=== PATIENT | male | born 1950 | race Caucasian/White ===

== ENCOUNTER 2018-01-30 17:26 | Inpatient (IN) | payer OTHER, MEDICARE ==
--- NOTE | 2018-01-30 17:48 | PDOC ---
Rapid Medical Evaluation Chief Complaint: Wound Time Seen by Provider: 01/30/18 17:39 Medical Evaluation: 01/30/18 17:45 Subject: I have performed a brief in-person evaluation of this patient. The patient presents with a chief complaint of: sent from Dr Hassan office for eval of fevers last PM 103.2/ chills/ and dizziness Pertinent physical exam findings: well, pale. Lungs clear , abd soft.but morbidly obese I have ordered the following: Influenza, CBC, CMP, CXR- has labs from previous draw today. The patient will proceed to the ED for further evaluation. PLEASE CALL DR HASSAN cell: [phone] for updates 01/30/18 17:53 Discharge Disposition - Referrals Referrals: Jordan Alonso MD [Primary Care Provider] - - Patient Instructions - Post Discharge Activity
[2018-01-30 18:17] LABS: EOS % 0.2 % (0-4.5); HEMOGLOBIN 13.9 GM/dL (11.7-16.9); MCH 33.1 pg (25.7-33.7); MCHC 34.7 g/dl (32.0-35.9); MEAN CELL VOLUME 95.3 fl (80-96); MEAN PLT VOLUME 8.8 fl (7.5-11.1); MONO % 8.3 % (3.8-10.2); NEUT % 74.5 % (42.8-82.8); PLATELET COUNT 182 K/MM3 (134-434); RDW 13.1 % (11.9-15.9); WHITE BLOOD COUNT 16.7 K/mm3 (4.0-10.0)
[2018-01-30 19:02] LABS: ALBUMIN 3.8 g/dl (3.4-5.0); ANION GAP 10 MMOL/L (8-16); BLOOD UREA NITROGEN 19 mg/dL (7-18); CALCIUM 8.6 mg/dL (8.5-10.1); CHLORIDE 101 mmol/L (98-107); CO2 26 mmol/L (21-32); GLUCOSE,RANDOM 117 mg/dL (74-106); POTASSIUM 3.5 mmol/L (3.5-5.1); SODIUM 137 mmol/L (136-145)
[2018-01-30 19:06] LABS: ALK PHOS 39 U/L (45-117); BILIRUBIN,TOTAL 1.4 mg/dL (0.2-1.0); SGOT/AST 24 U/L (15-37); SGPT/ALT 24 U/L (12-78); TOT PROT 6.9 g/dl (6.4-8.2)
--- NOTE | 2018-01-30 19:14 | PDOC ---
History of Present Illness - General Chief Complaint: Wound Stated Complaint: INFECTED IN THE BLOOD Time Seen by Provider: 01/30/18 17:39 - History of Present Illness Initial Comments: The patient is a 67M with a history of T2DM (metformin), HTN, CHF, and a-fib ( coumadin) who presents with 1d of RUQ abdominal pain with associated emesis x1 yesterday. The patient endorses nausea today but denies emesis. Patient endorses fever at home to 103, only took a cold shower to help alleviate fever. He also denies SZYMANSKI, changes in vision, chest pain, SOB, diarrhea, or changes in urination. The patient was seen in Dr. Alonso's clinic where he was found to have a leukocytosis to 18.8. Per Dr. Alonso, the patient was also experiencing orthostatic dizziness at home over the last day as well. The patient denies history of intra-abdominal surgeries. 01/30/18 20:16 01/30/18 20:19 Past History - Past Medical History Allergies/Adverse Reactions: Allergies Allergy/AdvReac Type Severity Reaction Status Date / Time No Known Allergies Allergy Verified 01/30/18 17:40 Home Medications: Ambulatory Orders Glimepiride [Amaryl -] 1 mg PO DAILY 01/30/18 Lisinopril mg PO DAILY 01/30/18 Cardiac Disorders: Yes (a fib) COPD: No Diabetes: Yes HTN: Yes - Suicide/Smoking/Psychosocial Hx Smoking History: Never smoked Review of Systems - Review of Systems Able to Perform ROS?: Yes Comments:: GENERAL/CONSTITUTIONAL: +fevers at home to 103; No weakness HEAD, EYES, EARS, NOSE AND THROAT: No change in vision. No ear pain or discharge. No sore throat CARDIOVASCULAR: No chest pain or shortness of breath RESPIRATORY: No cough, wheezing, or hemoptysis GASTROINTESTINAL: +nausea; no vomiting today; No diarrhea or constipation GENITOURINARY: No dysuria, frequency, or change in urination MUSCULOSKELETAL: No joint or muscle swelling or pain. No neck or back pain SKIN: No rash NEUROLOGIC: No headache, loss of consciousness, or change in strength/sensation ENDOCRINE: No increased thirst. No abnormal weight change HEMATOLOGIC/LYMPHATIC: No anemia, +coumadin ALLERGIC/IMMUNOLOGIC: No hives or skin allergy 01/30/18 20:18 01/30/18 20:19 01/30/18 20:20 *Physical Exam - Vital Signs Last Vital Signs Temp Pulse Resp BP Pulse Ox 99.6 F 99 H 18 134/75 98 01/30/18 17:41 01/30/18 17:41 01/30/18 17:41 01/30/18 17:41 01/30/18 17:41 - Physical Exam Comments: GENERAL: Awake, alert, and fully oriented, in no acute distress HEAD: No signs of trauma, normocephalic, atraumatic EYES: PERRLA, EOMI, sclera anicteric, conjunctiva clear ENT: Hearing grossly normal, nares patent, oropharynx clear without exudates. Moist mucosa NECK: Normal ROM, supple, no lymphadenopathy LUNGS: No distress, speaks full sentences, clear to auscultation bilaterally HEART: irregularly irregular, normal S1 and S2, no murmurs appreciated, peripheral pulses normal and equal bilaterally ABDOMEN: Soft, protuberant, nontender, normoactive bowel sounds. No guarding, no rebound EXTREMITIES : BLE venous skin changes; BLE 2+ edema to mid-rodríguez; Normal inspection, Normal range of motion NEUROLOGICAL: Cranial nerves II through XII grossly intact. Normal speech, normal gait, no focal sensorimotor deficits SKIN: Warm, Dry, BLE venous skin changes 01/30/18 20:20 ED Treatment Course - LABORATORY CBC & Chemistry Diagram: 01/30/18 18:02 01/30/18 18:02 - ADDITIONAL ORDERS Additional order review: Laboratory Results 01/30/18 18:02 Lipase 105 01/30/18 18:02 RBC 4.20 MCV 95.3 MCHC 34.7 RDW 13.1 MPV 8.8 Neutrophils % 74.5 Lymphocytes % 16.0 Monocytes % 8.3 Eosinophils % 0.2 Basophils % 1.0 Medical Decision Making - Medical Decision Making The patient is a 67M with a history of T2DM and a-fib (coumadin) who presents with 1d of abominal pain, Vx1, and orthostatic lightheadedness Ddx: bacteremia, cellulitis, cholecystitis, gastritis, pancreatitis ED Course CMP, CBC, Lipase, UA RUQ US 1L NS CT A&P w/ IV contrast 01/30/18 20:46 Leukocytosis to 16.7 Will draw blood cx and lactate Will start Vanc and Zosyn Plan for admission for treatment of cellulitis vs bacteremia CT w/o evidence of cholecystitis or other intra-abdominal sources of infection. However, 1.7cm lesion noted for which patient will need f/u as there is no prior study. Dispo admit for IV abx 01/30/18 20:48 *DC/Admit/Observation/Transfer Diagnosis at time of Disposition: Cellulitis Qualifiers: Site of cellulitis: extremity Site of cellulitis of extremity: lower extremity Laterality: left Qualified Code(s): L03.116 - Cellulitis of left lower limb - Discharge Dispostion Condition at time of disposition: Stable Decision to Admit order: Yes - Referrals - Patient Instructions - Post Discharge Activity
[2018-01-30] MEDS ORDERED: SODIUM CHLORIDE 0.9% 500 ML INFUS.BAG IV ONE (20:09)
--- NOTE | 2018-01-30 20:32 | PDOC ---
Attending Attestation - Physicial Exam PE: 01/30/18 20:33 GENERAL: Awake, alert, and fully oriented, in no acute distress HEAD: No signs of trauma EYES: PERRLA, EOMI, sclera anicteric, conjunctiva clear ENT: Auricles normal inspection, hearing grossly normal, nares patent, oropharynx clear without exudates. Moist mucosa NECK: Normal ROM, supple, no lymphadenopathy, JVD, or masses. No bruits. LUNGS: Breath sounds equal, clear to auscultation bilaterally. No wheezes, and no crackles HEART: Regular rate and rhythm, normal S1 and S2, no murmurs, rubs or gallops ABDOMEN: (+) Protuberant with pannus. Soft, nontender, normoactive bowel sounds. No guarding, no rebound. No masses. EXTREMITIES: Moving all extremities purposefully. No clubbing or cyanosis. No cords or tenderness. (+) Chronic pedal edema. (+) Mild erythema on the rodríguez of the left leg. (+) chronic 4cm laceration on the right knee. NEUROLOGICAL: No gross focal deficits. SKIN: Warm, Dry, normal turgor, no rashes or lesions noted. <Tereza Celeste - Last Filed: 01/30/18 20:33> - Resident Resident Name: Jorge Swift - ED Attending Attestation I have performed the following: I have examined & evaluated the patient, The case was reviewed & discussed with the resident, I agree w/resident's findings & plan, Exceptions are as noted - HPI HPI: 01/30/18 20:32 this 67 yo obese male sent in for fever,abd pain - Medical Decision Making 01/31/18 01:34 IMP cellultis admitted for IV antibiotics <Silvia Stallworth - Last Filed: 01/31/18 01:42>
[2018-01-30 22:16] LABS: URINE APPEARANCE CLEAR; URINE BILIRUBIN NEGATIVE (<2.0 mg/dL); URINE COLOR YELLOW; URINE GLUCOSE (UA) NEGATIVE (NEGATIVE); URINE KETONE NEGATIVE (NEGATIVE); URINE LEUK ESTERASE TRACE (NEGATIVE); URINE NITRITE NEGATIVE (NEGATIVE); URINE PROTEIN NEGATIVE (NEGATIVE); URINE UROBILINOGEN NEGATIVE mg/dL (0.2-1.0)
[2018-01-31] MEDS ORDERED: PIPERACILLIN/TAZOB 4.5 GM 4.5 GM in DEXTROSE 5%-WATER 100 ML IVPB ONE (00:02)
[2018-01-31] MEDS ORDERED: VANCOMYCIN 1,500 MG in DEXTROSE 5%-WATER - 500 ML IVPB ONE (00:02)
[2018-01-31] MEDS ORDERED: PIPERACILLIN/TAZOB 4.5 GM 4.5 GM/100 ML BAG IVPB ONE (00:11)
[2018-01-31 07:37] LABS: HEMATOCRIT 40.7 % (35.4-49); HEMOGLOBIN 13.8 GM/dL (11.7-16.9); MCH 32.4 pg (25.7-33.7); MCHC 33.8 g/dl (32.0-35.9); MEAN CELL VOLUME 95.7 fl (80-96); MEAN PLT VOLUME 8.8 fl (7.5-11.1); PLATELET COUNT 167 K/MM3 (134-434); RBC 4.25 M/mm3 (4.00-5.60); RDW 13.1 % (11.9-15.9); WHITE BLOOD COUNT 13.7 K/mm3 (4.0-10.0)
[2018-01-31 07:40] LABS: INR 1.82 (0.83-1.09); PROTHROMBIN TIME (PATIENT) 20.6 SEC (9.7-13.0)
[2018-01-31 07:52] LABS: ANION GAP 10 MMOL/L (8-16); BLOOD UREA NITROGEN 16 mg/dL (7-18); CALCIUM 8.5 mg/dL (8.5-10.1); CHLORIDE 103 mmol/L (98-107); CO2 24 mmol/L (21-32); GLUCOSE,RANDOM 153 mg/dL (74-106); POTASSIUM 3.5 mmol/L (3.5-5.1); SODIUM 137 mmol/L (136-145)
[2018-01-31 07:55] LABS: CREATININE 0.9 mg/dL (0.7-1.3)
[2018-01-31] MEDS ORDERED: HEPARIN NA (PORCINE) 5,000 UNITS/ML 1ML VIAL SQ SCH (10:00)
[2018-01-31] MEDS ORDERED: CEFTRIAXONE 1 GM in DEXTROSE 5%-WATER - 50 ML IVPB ONE (10:00)
[2018-01-31] MEDS ORDERED: CEFTRIAXONE 1 GM/50 ML BAG ONE (10:15)
[2018-01-31] MEDS ORDERED: POLYETHYLENE GLYCOL 3350 119 GM BTL PO ONE (10:17)
[2018-01-31] MEDS: LISINOPRIL 5 MG TABLET (FP) PO SCH (10:17)
--- NOTE | 2018-01-31 15:38 | PN ---
Progress Note (short form) - Note Progress Note: Id consult dictated imp/reccd 67 year old obese man pmh NIDDM admitted today with history of fever on Tuesday night with vomiting, took a cold shower nored left leg pain left calf and inner thigh in ED noted to have leukocytosis ultrasound and ct scan no biliary disease s/p fall on with right knee abrasion received vanco/zosyn and ceftriaxone in ED fever/vomiting prabable cellulitis LLE continue ceftriaxone duplex leg f/u cultures Problem List - Problems (1) Fever Code(s): R50.9 - FEVER, UNSPECIFIED (2) Leukocytosis Code(s): D72.829 - ELEVATED WHITE BLOOD CELL COUNT, UNSPECIFIED (3) Cellulitis Code(s): L03.90 - CELLULITIS, UNSPECIFIED Qualifiers: Site of cellulitis: extremity Site of cellulitis of extremity: lower extremity Laterality: left Qualified Code(s): L03.116 - Cellulitis of left lower limb
--- NOTE | 2018-01-31 16:21 | CONS ---
INFECTIOUS DISEASE CONSULTATION DATE OF CONSULTATION: DATE OF DICTATION: 01/31/2018 REQUESTING PHYSICIAN: Jordan Alonso MD This is a 67-year-old man who on Tuesday night developed acute onset of fever with vomiting. He took a cold shower to alleviate his fever. He denies to me any abdominal pain. He has had a poor appetite. He noticed as well that he had left inner thigh and left lower leg pain at the same time. He had fever as high as 103. He had labs drawn and was noted to have a white count of 18,000 and advised admission to the hospital. Since then, he has had no further vomiting. He notes his leg pain is present but improved. ALLERGIES: He denies any drug allergies. PAST MEDICAL HISTORY: Notable for hqy-jgeqoxj-hahfuzwlz diabetes, hypertension, heart failure, atrial fibrillation, and obesity. MEDICATIONS AT HOME: Include glimepiride and lisinopril. SOCIAL HISTORY: He is originally from [facility]. There is no history of any recent travel. REVIEW OF SYSTEMS: He denies chest pain. He denies cough, shortness of breath. PHYSICAL EXAMINATION: General: He is an obese man in no acute distress. Vital Signs: His T-max is 100. Current temperature is 98.9. Pulse of 91; blood pressure 152/91. Respiratory rate is 18. He is saturating 98%. HEENT: Normocephalic. His eyes are anicteric. Neck: Supple. Lungs: Clear to auscultation. Heart: Regular rate and rhythm. Abdomen: Soft, nontender. Extremities: He has some mild warmth, erythema of the lateral aspect of the left lower extremity. He has an abrasion on his right knee. No pain in his right inner thigh. LABORATORY DATA: His labs are notable for an admission white count of 18,000. Today is 13.7. Hemoglobin 13.8. Platelets are 167. BUN is 16 and creatinine 0.9. Urinalysis is negative except for 1+ blood. His antigen is negative. Urine and blood cultures are pending. CAT scan findings are negative for biliary disease. In summary, this is a 67-year-old man with [id number] diabetes and hypertension, admitted with fever and leukocytosis, probable cellulitis, left lower extremity. Would continue ceftriaxone. Follow up cultures. Would get a duplex of his leg as well given the fact he complains of pain. Further recommendations to follow. Mary Alice PURDY/[id number]
--- NOTE | 2018-01-31 16:23 | HP ---
Admitting History and Physical - Primary Care Physician PCP: Handy Arboleda (cover for Dr Alonso) - Admission Chief Complaint: pain abd History of Present Illness: Overweight 67M with a history of T2DM (metformin), HTN, and a-fib (coumadin) who developed Rt sided abdominal pain with associated emesis x1 that began 2 days ago, and persisted into Tuesday. The patient cont'd to have nausea at time of arrival. Patient reported a fever home to 103, only took a cold shower to help alleviate it. He also denies SZYMANSKI, changes in vision, chest pain, SOB, diarrhea, or changes in urination, rash. The patient was seen in Dr. Alonso's office for this complaint. he sent him for bloodwork and was found to have a leukocytosis to 18.8. The patient was then advised to go to ED History Source: Patient, Medical Record Limitations to Obtaining History: Language Barrier - Past Medical History Cardiovascular: Yes: AFIB, HTN Hepatobiliary: Yes: Other (fatty liver) Musculoskeletal: Yes: Other Endocrine: Yes: Diabetes Mellitus Dermatology: Yes: Other (abrasion on skin of the RLE near ant knee) - Smoking History Smoking history: Never smoked Have you smoked in the past 12 months: No - Alcohol/Substance Use Hx Alcohol Use: No Number of Drinks Daily: 1 History of Substance Use: reports: None - Social History ADL: Independent History of Recent Travel: Yes (spends 6 months in [place] and 6 months in [place]) Other Social History: works in construction Home Medications - Allergies Allergies/Adverse Reactions: Allergies Allergy/AdvReac Type Severity Reaction Status Date / Time No Known Allergies Allergy Verified 01/30/18 17:40 - Home Medications Home Medications: Ambulatory Orders Glimepiride [Amaryl -] 1 mg PO DAILY 01/30/18 Lisinopril mg PO DAILY 01/30/18 Family Disease History - Family Disease History Family History: Unremarkable Review of Systems - Review of Systems Constitutional: reports: Chills Eyes: reports: No Symptoms HENT: reports: No Symptoms Neck: reports: No Symptoms Cardiovascular: reports: No Symptoms Respiratory: reports: No Symptoms Gastrointestinal: reports: Abdominal Pain Genitourinary: reports: No Symptoms Musculoskeletal: reports: No Symptoms Integumentary: reports: Wound (RLE) Neurological: reports: No Symptoms Endocrine: reports: No Symptoms Hematology/Lymphatic: reports: No Symptoms Psychiatric: reports: No Symptoms Physical Examination Vital Signs: Vital Signs Temperature 98.5 F 01/31/18 16:08 Pulse Rate 81 01/31/18 16:08 Respiratory Rate 16 01/31/18 16:08 Blood Pressure 134/78 01/31/18 16:08 O2 Sat by Pulse Oximetry (%) 98 01/31/18 12:15 Constitutional: Yes: Well Nourished Eyes: Yes: Conjunctiva Clear HENT: Yes: Atraumatic Neck: Yes: Supple Cardiovascular: Yes: Regular Rate and Rhythm Respiratory: Yes: WNL Gastrointestinal: Yes: Soft, Abdomen, Obese ...Rectal Exam: Yes: Deferred Musculoskeletal: Yes: WNL Extremities: Yes: WNL Edema: Yes Edema: LLE: 1+, RLE: 1+ Peripheral Pulses: Left Doralis Pedis: 1+, Right Dorsalis Pedis: 1+ Integumentary: Yes: Other (abrasion) Wound/Incision: Yes: Excoriated (skin over Rt lat knee) Neurological: Yes: WNL ...Motor Strength: WNL Psychiatric: Yes: WNL Labs: CBC, BMP 01/31/18 07:08 01/31/18 07:08 Laboratory Tests 01/30/18 01/30/18 01/30/18 18:02 18:02 18:02 WBC 16.7 H RBC 4.20 Hgb 13.9 Hct 40.0 MCV 95.3 MCH 33.1 MCHC 34.7 RDW 13.1 Plt Count 182 MPV 8.8 Absolute Neuts (auto) 12.4 H Neutrophils % 74.5 Lymphocytes % 16.0 Monocytes % 8.3 Eosinophils % 0.2 Basophils % 1.0 Nucleated RBC % 0 PT with INR INR Sodium 137 Potassium 3.5 Chloride 101 Carbon Dioxide 26 Anion Gap 10 BUN 19 H Creatinine 1.0 Creat Clearance w eGFR > 60 POC Glucometer Random Glucose 117 H Hemoglobin A1c % Lactic Acid Calcium 8.6 Total Bilirubin 1.4 H AST 24 ALT 24 Alkaline Phosphatase 39 L Total Protein 6.9 Albumin 3.8 Lipase 105 Urine Color Urine Appearance Urine pH Ur Specific [place] Urine Protein Urine Glucose (UA) Urine Ketones Urine Blood Urine Nitrite Urine Bilirubin Urine Urobilinogen Ur Leukocyte Esterase Urine WBC (Auto) Urine RBC (Auto) 01/30/18 01/30/18 01/31/18 21:50 23:38 07:08 WBC 13.7 H RBC 4.25 Hgb 13.8 Hct 40.7 MCV 95.7 MCH 32.4 MCHC 33.8 RDW 13.1 Plt Count 167 MPV 8.8 Absolute Neuts (auto) Neutrophils % Lymphocytes % Monocytes % Eosinophils % Basophils % Nucleated RBC % PT with INR INR Sodium Potassium Chloride Carbon Dioxide Anion Gap BUN Creatinine Creat Clearance w eGFR POC Glucometer Random Glucose Hemoglobin A1c % Lactic Acid 1.0 Calcium Total Bilirubin AST ALT Alkaline Phosphatase Total Protein Albumin Lipase Urine Color Yellow Urine Appearance Clear Urine pH 6.0 Ur Specific [place] 1.011 Urine Protein Negative Urine Glucose (UA) Negative Urine Ketones Negative Urine Blood 1+ H Urine Nitrite Negative Urine Bilirubin Negative Urine Urobilinogen Negative Ur Leukocyte Esterase Trace Urine WBC (Auto) 2 Urine RBC (Auto) None 01/31/18 01/31/18 01/31/18 07:08 07:08 07:08 WBC RBC Hgb Hct MCV MCH MCHC RDW Plt Count MPV Absolute Neuts (auto) Neutrophils % Lymphocytes % Monocytes % Eosinophils % Basophils % Nucleated RBC % PT with INR 20.60 H INR 1.82 H Sodium 137 Potassium 3.5 Chloride 103 Carbon Dioxide 24 Anion Gap 10 BUN 16 Creatinine 0.9 Creat Clearance w eGFR > 60 POC Glucometer Random Glucose 153 H D Hemoglobin A1c % 6.3 H Lactic Acid Calcium 8.5 Total Bilirubin AST ALT Alkaline Phosphatase Total Protein Albumin Lipase Urine Color Urine Appearance Urine pH Ur Specific [place] Urine Protein Urine Glucose (UA) Urine Ketones Urine Blood Urine Nitrite Urine Bilirubin Urine Urobilinogen Ur Leukocyte Esterase Urine WBC (Auto) Urine RBC (Auto) 01/31/18 08:29 WBC RBC Hgb Hct MCV MCH MCHC RDW Plt Count MPV Absolute Neuts (auto) Neutrophils % Lymphocytes % Monocytes % Eosinophils % Basophils % Nucleated RBC % PT with INR INR Sodium Potassium Chloride Carbon Dioxide Anion Gap BUN Creatinine Creat Clearance w eGFR POC Glucometer [phone] Random Glucose Hemoglobin A1c % Lactic Acid Calcium Total Bilirubin AST ALT Alkaline Phosphatase Total Protein Albumin Lipase Urine Color Urine Appearance Urine pH Ur Specific [place] Urine Protein Urine Glucose (UA) Urine Ketones Urine Blood Urine Nitrite Urine Bilirubin Urine Urobilinogen Ur Leukocyte Esterase Urine WBC (Auto) Urine RBC (Auto) Urine Test Results Urine Color Yellow 01/30/18 21:50 Urine Appearance Clear 01/30/18 21:50 Urine pH 6.0 (5.0-8.0) 01/30/18 21:50 Ur Specific [place] 1.011 (1.001-1.035) 01/30/18 21:50 Urine Protein Negative (NEGATIVE) 01/30/18 21:50 Urine Glucose (UA) Negative (NEGATIVE) 01/30/18 21:50 Urine Ketones Negative (NEGATIVE) 01/30/18 21:50 Urine Blood 1+ (NEGATIVE) H 01/30/18 21:50 Urine Nitrite Negative (NEGATIVE) 01/30/18 21:50 Urine Bilirubin Negative (<2.0 mg/dL) 01/30/18 21:50 Ur Leukocyte Esterase Trace (NEGATIVE) 01/30/18 21:50 Imaging - Results Chest X-ray: Report Reviewed Cat Scan: Report Reviewed Ultrasound: Report Reviewed Problem List - Problems (1) Leukocytosis Assessment/Plan: in connection with fever/chills, and abd pain/n-v; which seems to have abated: PLAN: Iv Abs; see ID note Code(s): D72.829 - ELEVATED WHITE BLOOD CELL COUNT, UNSPECIFIED Qualifiers: Leukocytosis type: unspecified Qualified Code(s): D72.829 - Elevated white blood cell count, unspecified (2) Edema extremities Assessment/Plan: with some medial Lt thigh discomfort; edema is bilateral. PLAN: duplex scan Code(s): R60.0 - LOCALIZED EDEMA (3) Diabetes Assessment/Plan: hold Amaryl; check BGMs while on liquid diet Code(s): E11.9 - TYPE 2 DIABETES MELLITUS WITHOUT COMPLICATIONS Qualifiers: Diabetes mellitus type: type 2 Diabetes mellitus complication status: with skin complications Diabetes mellitus complication detail: with other skin complication (4) Fatty infiltration of liver Assessment/Plan: shown on CT & US of abd; LFTs are WNL, no signs of gross hepatic failure Code(s): K76.0 - FATTY (CHANGE OF) LIVER, NOT ELSEWHERE CLASSIFIED (5) Pain, abdominal Assessment/Plan: resolved at this time; no evidence of gallstones; kidney stones; divertic Dz Code(s): R10.9 - UNSPECIFIED ABDOMINAL PAIN Qualifiers: Abdominal location: unspecified location Qualified Code(s): R10.9 - Unspecified abdominal pain (6) Obesity Assessment/Plan: no inpatient plan as this does not seem to play a role in his acute process Code(s): E66.9 - OBESITY, UNSPECIFIED Qualifiers: Obesity type: unspecified obesity type Body mass index: BMI 60.0-69.9 (7) Atrial fibrillation Assessment/Plan: controlled; on a/c Code(s): I48.91 - UNSPECIFIED ATRIAL FIBRILLATION Qualifiers: Atrial fibrillation type: chronic Qualified Code(s): I48.2 - Chronic atrial fibrillation (8) Abrasion hip/leg Assessment/Plan: superfiicial; topical care Qualifiers: Encounter type: initial encounter Assessment/Plan obese 67 YO diabetic M who developed sudden abd discomfort in connection with leukocytosis ~~~~~~~~~~~~~~~~~~~~~~~~~~~~~~~ Dr Arboleda
[2018-01-31] MEDS ORDERED: WARFARIN NA 2 MG TABLET (UD) PO SCH (18:00)
[2018-02-01 07:10] LABS: HEMATOCRIT 38.9 % (35.4-49); HEMOGLOBIN 13.3 GM/dL (11.7-16.9); MCH 32.8 pg (25.7-33.7); MCHC 34.2 g/dl (32.0-35.9); MEAN CELL VOLUME 95.9 fl (80-96); PLATELET COUNT 178 K/MM3 (134-434); RBC 4.06 M/mm3 (4.00-5.60); RDW 13.2 % (11.9-15.9); WHITE BLOOD COUNT 9.4 K/mm3 (4.0-10.0)
[2018-02-01 07:17] LABS: INR 1.67 (0.83-1.09); PROTHROMBIN TIME (PATIENT) 18.9 SEC (9.7-13.0)
[2018-02-01 08:30] LABS: ANION GAP 6 MMOL/L (8-16); CALCIUM 8.5 mg/dL (8.5-10.1); CHLORIDE 104 mmol/L (98-107); CO2 28 mmol/L (21-32); GLUCOSE,RANDOM 146 mg/dL (74-106); POTASSIUM 3.9 mmol/L (3.5-5.1); SODIUM 138 mmol/L (136-145)
[2018-02-01 08:33] LABS: BLOOD UREA NITROGEN 17 mg/dL (7-18)
[2018-02-01] MEDS ORDERED: DEXTROSE 5%-WATER 100 ML IVPB ONE (09:18)
[2018-02-01] MEDS: CEFTRIAXONE 2 GM in DEXTROSE 5%-WATER 100 ML IVPB SCH (09:21)
[2018-02-01] MEDS: LISINOPRIL 5 MG TABLET (FP) PO SCH (09:22)
--- NOTE | 2018-02-01 12:59 | PN ---
Progress Note (short form) - Note Progress Note: feels improved still with LLE pain Vital Signs Period Temp Pulse Resp BP Sys/Campos Pulse Ox Last 24 Hr 98.1 F-98.5 F 65-90 16-20 126-148/56-94 98-98 cor-rrr lungs clear abd firm, protuberant ext +warmth +tenderness LLE CBC, BMP 02/01/18 06:30 02/01/18 06:30 Microbiology 01/31/18 00:25 Blood - Peripheral Venous Blood Culture - Preliminary NO GROWTH OBTAINED AFTER 24 HOURS, INCUBATION TO CONTINUE FOR 4 DAYS. 01/31/18 00:25 Blood - Peripheral Venous Blood Culture - Preliminary NO GROWTH OBTAINED AFTER 24 HOURS, INCUBATION TO CONTINUE FOR 4 DAYS. 01/30/18 18:02 Nasopharyngeal Swab Influenza Types A,B Antigen - Final 01/30/18 18:02 Nasopharyngeal Swab - Final a/p cellulitis LLE improving if cultures are negative can switch to po keflex in am leukocytosis resolved vomiting resolved consider advancing diet Problem List - Problems (1) Fever Code(s): R50.9 - FEVER, UNSPECIFIED (2) Leukocytosis Code(s): D72.829 - ELEVATED WHITE BLOOD CELL COUNT, UNSPECIFIED Qualifiers: Leukocytosis type: unspecified Qualified Code(s): D72.829 - Elevated white blood cell count, unspecified (3) Cellulitis Code(s): L03.90 - CELLULITIS, UNSPECIFIED Qualifiers: Site of cellulitis: extremity Site of cellulitis of extremity: lower extremity Laterality: left Qualified Code(s): L03.116 - Cellulitis of left lower limb
[2018-02-01] MEDS ORDERED: FUROSEMIDE 20 MG TABLET (FP) PO ONE (13:29)
--- NOTE | 2018-02-01 13:40 | PN ---
Progress Note (short form) - Note Progress Note: Active Medications Docusate Sodium (Colace -) 100 mg PO DAILY [facility] Furosemide (Lasix -) 20 mg PO ONCE ONE Stop: 02/01/18 13:30 Ceftriaxone Sodium 2 gm/ (Dextrose) 100 mls @ 100 mls/hr IVPB DAILY [facility]; Protocol Last Admin: 02/01/18 09:21 Dose: 100 mls/hr Lisinopril (Prinivil) 5 mg PO DAILY [facility] Last Admin: 02/01/18 09:22 Dose: 5 mg Warfarin Sodium (Coumadin -) 7.5 mg PO ONCE@1800 ONE Stop: 02/01/18 18:01 Laboratory Results - last 24 hr 02/01/18 02/01/18 02/01/18 05:48 06:30 06:30 WBC 9.4 RBC 4.06 Hgb 13.3 Hct 38.9 MCV 95.9 MCH 32.8 MCHC 34.2 RDW 13.2 Plt Count 178 MPV 9.0 PT with INR 18.90 H INR 1.67 H Sodium Potassium Chloride Carbon Dioxide Anion Gap BUN Creatinine Creat Clearance w eGFR POC Glucometer 161 Random Glucose Calcium 02/01/18 06:30 WBC RBC Hgb Hct MCV MCH MCHC RDW Plt Count MPV PT with INR INR Sodium 138 Potassium 3.9 Chloride 104 Carbon Dioxide 28 Anion Gap 6 L BUN 17 Creatinine 1.0 Creat Clearance w eGFR > 60 POC Glucometer Random Glucose 146 H Calcium 8.5 Vital Signs Period Temp Pulse Resp BP Sys/Campos Pulse Ox Last 24 Hr 98.1 F-98.5 F 65-90 16-20 126-148/56-94 98-98 CC; some leg discomfort but feels better ````````````````` skin--brawny appearance on the LE's; abrasion on Lt knee heart--RR distant lungs--grossly clear abd--girth hampers exam; but NT ext--1 to 2 + edema bilat; DPs felt neuro--alert coherent, non ill appearing `````````````````````` Summ > local cellulitis--on the LLE below knee; Duplex negative for DVT. The leg is less warm and less tender; cause unclear but as a diabetic he is prone to be infected. PLAN: will cot Ab post d/c > Htn--on 3 meds as OP; On RAEGAN; CCB, and Hctz; will increase dose of lisionopril > DM--will keep off Diabetic agent until after D/c > abrasion--Rt knee; no gross evidence of infection > on mcc a/c--for presumed ATF; cont warf > abnL chest xray--on admission, will get PA & LAT in Xray dep ~~~~~~~~~~~~~~~~ Dr Arboleda Problem List - Problems (1) Leukocytosis Code(s): D72.829 - ELEVATED WHITE BLOOD CELL COUNT, UNSPECIFIED Qualifiers: Leukocytosis type: unspecified Qualified Code(s): D72.829 - Elevated white blood cell count, unspecified (2) Edema extremities Code(s): R60.0 - LOCALIZED EDEMA (3) Diabetes Code(s): E11.9 - TYPE 2 DIABETES MELLITUS WITHOUT COMPLICATIONS Qualifiers: Diabetes mellitus type: type 2 Diabetes mellitus complication status: with skin complications Diabetes mellitus complication detail: with other skin complication (4) Fatty infiltration of liver Code(s): K76.0 - FATTY (CHANGE OF) LIVER, NOT ELSEWHERE CLASSIFIED (5) Pain, abdominal Code(s): R10.9 - UNSPECIFIED ABDOMINAL PAIN Qualifiers: Abdominal location: unspecified location Qualified Code(s): R10.9 - Unspecified abdominal pain (6) Obesity Code(s): E66.9 - OBESITY, UNSPECIFIED Qualifiers: Obesity type: unspecified obesity type Body mass index: BMI 60.0-69.9 (7) Atrial fibrillation Code(s): I48.91 - UNSPECIFIED ATRIAL FIBRILLATION Qualifiers: Atrial fibrillation type: chronic Qualified Code(s): I48.2 - Chronic atrial fibrillation (8) Abrasion hip/leg Qualifiers: Encounter type: initial encounter
--- NOTE | 2018-02-01 13:49 | EKG ---
Test Reason : Blood Pressure : / mmHG Vent. Rate : 066 BPM Atrial Rate : 326 BPM P-R Int : 000 ms QRS Dur : 096 ms QT Int : 388 ms P-R-T Axes : 000 062 024 degrees QTc Int : 406 ms ATRIAL FIBRILLATION ABNORMAL ECG WHEN COMPARED WITH ECG OF 30-MAY-2007 12:39, VENT. RATE HAS DECREASED BY 45 BPM Confirmed by EDEN JOSEPH MD ([id number]) on 02/01/2018 1:49:12 PM Referred By: Confirmed By:EDEN JOSEPH MD
[2018-02-01] MEDS: DOCUSATE SODIUM 100 MG CAPSULE (FP) PO SCH (15:00)
[2018-02-01] MEDS ORDERED: WARFARIN NA 7.5 MG TABLET (FP) PO ONE (18:00)
[2018-02-01] MEDS: MUPIROCIN 2% TOPICAL OINTMENT 22 GM TUBE TP SCH (21:46)
[2018-02-02 07:44] LABS: HEMATOCRIT 36.7 % (35.4-49); HEMOGLOBIN 12.9 GM/dL (11.7-16.9); MCH 33.6 pg (25.7-33.7); MCHC 35.1 g/dl (32.0-35.9); MEAN CELL VOLUME 95.8 fl (80-96); MEAN PLT VOLUME 9.3 fl (7.5-11.1); PLATELET COUNT 189 K/MM3 (134-434); RBC 3.83 M/mm3 (4.00-5.60); RDW 13.1 % (11.9-15.9); WHITE BLOOD COUNT 7.6 K/mm3 (4.0-10.0)
[2018-02-02 08:01] LABS: INR 1.52 (0.83-1.09); PROTHROMBIN TIME (PATIENT) 17.2 SEC (9.7-13.0)
[2018-02-02 08:27] LABS: ANION GAP 7 MMOL/L (8-16); BLOOD UREA NITROGEN 17 mg/dL (7-18); CALCIUM 7.9 mg/dL (8.5-10.1); CHLORIDE 105 mmol/L (98-107); CO2 27 mmol/L (21-32); GLUCOSE,RANDOM 177 mg/dL (74-106); SODIUM 139 mmol/L (136-145)
[2018-02-02] MEDS ORDERED: DEXTROSE 5%-WATER 100 ML IVPB ONE (11:36)
[2018-02-02] MEDS: LISINOPRIL 5 MG TABLET (FP) PO SCH (11:53)
[2018-02-02] MEDS: MUPIROCIN 2% TOPICAL OINTMENT 22 GM TUBE TP SCH (11:53)
[2018-02-02] MEDS: DOCUSATE SODIUM 100 MG CAPSULE (FP) PO SCH (11:53)
[2018-02-02] MEDS: CEFTRIAXONE 2 GM in DEXTROSE 5%-WATER 100 ML IVPB SCH (11:54)
[2018-02-02 13:44] VITALS: BP 161/82; PULSE 83; TEMP 98
[2018-02-02] MEDS ORDERED: LISINOPRIL 5 MG TABLET (FP) PO STA (14:17)
[2018-02-02] MEDS ORDERED: WARFARIN NA 7.5 MG TABLET (FP) PO ONE (14:18)
--- NOTE | 2018-02-02 14:23 | PN ---
Progress Note (short form) - Note Progress Note: minimal leg pain Vital Signs Period Temp Pulse Resp BP Sys/Campos Pulse Ox Last 24 Hr 97.4 F-98.4 F 74-106 16-30 111-161/59-94 95 cor-rrr lungs clear abd soft,nt ext minimal tenderness, still some warmth LLE CBC, BMP 02/02/18 06:30 02/02/18 06:30 Microbiology 01/31/18 00:25 Blood - Peripheral Venous Blood Culture - Preliminary NO GROWTH OBTAINED AFTER 48 HOURS, INCUBATION TO CONTINUE FOR 3 DAYS. 01/31/18 00:25 Blood - Peripheral Venous Blood Culture - Preliminary NO GROWTH OBTAINED AFTER 48 HOURS, INCUBATION TO CONTINUE FOR 3 DAYS. 01/30/18 18:02 Nasopharyngeal Swab Influenza Types A,B Antigen - Final 01/30/18 18:02 Nasopharyngeal Swab - Final a/p cellulitis LLE improving po keflex 500 tid for5 days Problem List - Problems (1) Fever Code(s): R50.9 - FEVER, UNSPECIFIED (2) Leukocytosis Code(s): D72.829 - ELEVATED WHITE BLOOD CELL COUNT, UNSPECIFIED Qualifiers: Leukocytosis type: unspecified Qualified Code(s): D72.829 - Elevated white blood cell count, unspecified (3) Cellulitis Code(s): L03.90 - CELLULITIS, UNSPECIFIED Qualifiers: Site of cellulitis: extremity Site of cellulitis of extremity: lower extremity Laterality: left Qualified Code(s): L03.116 - Cellulitis of left lower limb
[2018-02-02 15:13] VITALS: BMI 49.5
--- NOTE | 2018-02-02 15:29 | DS ---
Physical Examination Vital Signs: Vital Signs Temperature 98 F 02/02/18 13:43 Pulse Rate 83 02/02/18 13:43 Respiratory Rate 20 02/02/18 13:43 Blood Pressure 161/82 02/02/18 13:43 O2 Sat by Pulse Oximetry (%) 95 02/01/18 21:00 Constitutional: Yes: Well Nourished, No Distress, Calm Eyes: Yes: Conjunctiva Clear Neck: Yes: Supple Cardiovascular: Yes: Regular Rate and Rhythm Respiratory: Yes: CTA Bilaterally Gastrointestinal: Yes: Normal Bowel Sounds, Soft, Abdomen, Obese ...Rectal Exam: Yes: Deferred Edema: Yes Edema: LLE: Trace, RLE: Trace Integumentary: Yes: Skin Tear (RT knee; clean) Wound/Incision: Yes: Clean/Dry Neurological: Yes: WNL ...Motor Strength: WNL Psychiatric: Yes: WNL Labs: CBC, BMP 02/02/18 06:30 02/02/18 06:30 CXR--NAP Discharge Summary Reason For Visit: CELLULITIS, DIABETES MELLITUS Current Active Problems Abrasion Rt knee (Acute) Atrial fibrillation (Acute) Cellulitis; leg (Acute) Diabetes (Acute) Edema extremities (Acute) Fatty infiltration of liver (Acute) Fever (Acute) Leukocytosis (Acute) Obesity (Acute) Pain, abdominal (Acute) hypertension Hospital Course: 67 YO M who developed sudden onset of abd which began on 01/29/18; after he ate a meal consisting of cooked goat at a friend's house. He had diffuse abd pains, n- v x 1, chills. He saw his PCP the following day who did blood work and found his WBC to be 18K. He advised patient to go to ER. His abd resolved the same day he was admitted but he was noted to have a fever. the repeat WBC was 16K; he was given Abs. He also had a superficial wound on the Rt knee, but c/o pain on the medial lower LLE and Lt thigh suggesting a possible cellulitis. Duplex scan was negative. CXR suggested possible infiltrate. He was cont'd on IV ABs. BC taken were negative. He was seen by ID who agreed w/ IV Abs and then recommended d/c on PO agent only as repeat CXR was benign. He did not appear sick or toxic. Condition: Stable - Instructions Diet, Activity, Other Instructions: low sugar/fat/salt diet continue same medications antibiotic for 7days apply antibiotic ointment to Rt knee wound and cover with dressing see Dr Alonso next week Referrals: Jordan Alonso MD [Primary Care Provider] - Disposition: HOME - Home Medications Comprehensive Discharge Medication List: Ambulatory Orders see amb orders
== END 2018-02-02 16:42 | disposition home or self-care (01) | DRG 603 ==
LOC: JER 17:26 → JERBED 23:41 → UNDOADMIN 23:49 → JERBED 23:49 → J5S 01-31 15:39
PROVIDERS: ADMIT Internal Medicine; ATTEND Internal Medicine
DX: L03.116 Cellulitis of left lower limb (principal); Z68.42 Body mass index [BMI] 45.0-49.9, adult; E66.8 Other obesity; E11.628 Type 2 diabetes mellitus with other skin complications; D72.829 Elevated white blood cell count, unspecified; R50.9 Fever, unspecified; K76.0 Fatty (change of) liver, not elsewhere classified; R60.0 Localized edema; R10.9 Unspecified abdominal pain; I48.2 Chronic atrial fibrillation; S80.211A Abrasion, right knee, initial encounter; Z79.01 Long term (current) use of anticoagulants
CPT/HCPCS: 36415; 71046-TC-FY; 74177-TC; 76705-TC; 80048; 80053; 81003; 81015; 82962; 83036; 83605; 83690; 85025; 85027; 85610; 87040; 87086; 87186; 87804; 93005; 93010; 93971-TC; 99285-25